=== PATIENT | female | born 1965 | race Two or more races ===

== ENCOUNTER 2024-04-25 11:07 | Emergency (ER) | payer OTHER ==
[~2024-04-25] VITALS: Ht 160 cm; Wt 64.9 kg
[2024-04-25] MEDS ORDERED: SYNTHROID100 MCG (11:10)
[2024-04-25] MEDS ORDERED: ACETAMINOPHEN 500 MG GEL..CAP PO PRN (12:15)
[2024-04-25] MEDS ORDERED: ACETAMINOPHEN 500 MG GEL..CAP PO ONE (12:31)
== END 2024-04-25 15:10 | disposition home or self-care (01) ==
LOC: ER 11:09
DX: S00.93XA Contusion of unspecified part of head, initial encounter (principal); W18.39XA Other fall on same level, initial encounter; Y93.89 Activity, other specified; Y92.89 Other specified places as the place of occurrence of the external cause; Y99.9 Unspecified external cause status; E03.9 Hypothyroidism, unspecified